=== PATIENT | female | born 1940 | race Caucasian/White ===

== ENCOUNTER 2018-07-24 22:18 | Emergency (ER) | payer MEDICARE, OTHER ==
[~2018-07-24] VITALS: Ht 157.5 cm; Wt 72.7 kg
[2018-07-24] MEDS ORDERED: AMLODIPINE BES2.5 MG PO (22:42)
[2018-07-24] MEDS ORDERED: ZYRTEC10 MG PO (22:43)
[2018-07-24] MEDS ORDERED: LIPITOR20 MG PO (22:43)
[2018-07-24] MEDS ORDERED: METO25TAB PO (22:43)
[2018-07-24] MEDS ORDERED: ISOSORB MONO30 MG PO (22:44)
[2018-07-24] MEDS ORDERED: DITROPAN PO (22:45)
[2018-07-24] MEDS ORDERED: OMEPRAZOLE10 MG PO (22:46)
[2018-07-24] MEDS ORDERED: WELLBUTRIN SR150 MG PO (22:46)
[2018-07-24] MEDS ORDERED: ASPIRIN CHEWABL81 MG PO (22:47)
[2018-07-24] MEDS ORDERED: LISINOPRIL10 M1 PO (22:47)
[2018-07-24 23:15] LABS: HEMATOCRIT 41.4 % (37.0-47.0); HEMOGLOBIN 13.3 g/dl (12.0-16.0); IMMATURE GRANULOCYTES 0.1 % (0.0-5.0); MEAN CELL VOLUME 92.2 fL CALC (80.0-100.0); MEAN CORPUSCULAR HGB 29.6 pG CALC (26.0-32.0); MEAN CORPUSCULAR HGB CONC 32.1 g/L CALC (32.0-36.0); NEUT# 3.86 thou/uL (2.00-7.15); RED BLOOD COUNT 4.49 mill/uL (4.20-5.60); RED CELL DISTRI WIDTH 12.6 % (11.5-15.5)
[2018-07-24 23:31] LABS: ALBUMIN 4.3 g/dL (3.2-5.0); ALKALINE PHOSPHATASE 72 u/l (38-126); ANION GAP 15 (6-22 (CALC)); BILIRUBIN, TOTAL 0.4 mg/dL (0.0-1.4); BUN 19 mg/dL (8-23); BUN/CREATININE RATIO 21 (12-20 (CALC)); CARBON DIOXIDE 25 mmol/l (22-30); CHLORIDE 105 mmol/l (95-108); CREATININE 0.9 mg/dL (0.5-1.0); GFR > 60 ML/MIN (>=60 (CALC)); GFR FOR AFR.AMER. > 60 ML/MIN (>=60 (CALC)); SGOT/AST 20 u/l (9-36); SODIUM 140 mmol/l (137-146); TOTAL PROTEIN 6.6 g/dL (6.3-8.2)
[2018-07-24 23:50] LABS: URINE BILIRUBIN - DIPSTICK NEGATIVE (NEGATIVE); URINE BLOOD DIPSTICK NEGATIVE (NEGATIVE); URINE COLOR YELLOW; URINE GLUCOSE - DIPSTICK NEGATIVE (NEGATIVE); URINE KETONE NEGATIVE (NEGATIVE); URINE LEUK ESTERASE SMALL (NEGATIVE); URINE NITRITE - DIPSTICK NEGATIVE (Negative); URINE PH 5.5 (4.5-8.0); URINE PROTEIN - DIPSTICK NEGATIVE (NEG-TRACE); URINE UROBILINOGEN - DIPSTICK 0.2 E.U./dL (0.2)
[2018-07-25 00:04] LABS: URINE RBC 0-2 RBC/hpf (0-5); URINE SQUAMOUS EPITHELIAL CELL FEW EPI/hpf (0-FEW)
[2018-07-25 00:15] VITALS: BP 105/72
== END 2018-07-25 00:15 | disposition home or self-care (01) ==
LOC: ED 22:18
PROVIDERS: Family Medicine
DX: Z04.89 Encounter for examination and observation for other specified reasons (principal); I25.10 Atherosclerotic heart disease of native coronary artery without angina pectoris; K21.9 Gastro-esophageal reflux disease without esophagitis